=== PATIENT | female | born 1975 | race Caucasian/White ===

== ENCOUNTER 2023-01-12 20:45 | Inpatient (IN) | payer MEDICAID ==
[~2023-01-12] VITALS: Ht 167.6 cm; Wt 98.8 kg
[~2023-01-12 20:45] MED LIST: CHLO100T42 PO; LEVO100 PO; LEVO100T13 PO; QUET100T PO; QUET200T PO; TRAZ150T79 PO
[2023-01-12 23:26] LABS: GLUCOMETER DEV NAME(LOC) BV3S.; GLUCOSE,POINT OF CARE 133 MG/DL (70-110)
[2023-01-12 23:54] VITALS: BP 113/80
[2023-01-13] MEDS ORDERED: PNEUMOCOCCAL VACCINE POLYVALENT 0.5 ML VIAL [PPSV23] IM. ONE (00:45)
[2023-01-13 00:55] VITALS: BP 119/76
[2023-01-13] MEDS: LORazepam 2 MG TABLET PO PRN ×2 (01:05→16:56)
[2023-01-13] MEDS: HALOPERIDOL 5 MG TABLET PO PRN (01:05)
[2023-01-13] MEDS: ZOLPIDEM TARTRATE 10 MG TABLET PO PRN (01:05)
[2023-01-13] MEDS ORDERED: LOPERAMIDE HCL 2 MG CAPSULE PO PRN (06:30)
[2023-01-13] MEDS ORDERED: DOCUSATE SODIUM 100 MG CAPSULE PO PRN (06:30)
[2023-01-13] MEDS ORDERED: ALBUTEROL SULFATE HFA 90 MCG/PUFF 8 GM INHALER IH PRN (06:30)
[2023-01-13] MEDS ORDERED: NICOTINE 14 MG/24 HOUR PATCH TD PRN (06:30)
[2023-01-13] MEDS ORDERED: MAGNESIUM HYDROXIDE SUSPENSION 30 ML UDCUP PO PRN (06:30)
[2023-01-13] MEDS ORDERED: ONDANSETRON HCL 4 MG TABLET PO PRN (06:30)
[2023-01-13] MEDS ORDERED: PETROLATUM,WHITE 28 GM JELLY TP PRN (06:30)
[2023-01-13] MEDS ORDERED: MAG HYDROX/AL HYDROX/SIMETH ES 30 ML SUSPENSION UDCUP PO PRN (06:30)
[2023-01-13] MEDS ORDERED: CloNIDine HCL 0.1 MG TABLET PO PRN (06:30)
[2023-01-13] MEDS ORDERED: GuaiFENesin/D-METHORPHAN [SUGAR-FREE] 200-20MG/10 ML SYRUP UDCUP PO PRN (06:30)
[2023-01-13] MEDS: LEVOTHYROXINE SODIUM 100 MCG TABLET PO SCH (06:43)
[2023-01-13 08:25] VITALS: BP 122/76
[2023-01-13] MEDS ORDERED: CloZAPine 25 MG TABLET PO SCH (15:00)
[2023-01-13] MEDS: QUEtiapine FUMARATE 100 MG TABLET PO SCH (15:27)
[2023-01-13] MEDS: ACETAMINOPHEN 325 MG TABLET PO PRN (16:56)
[2023-01-13 20:00] VITALS: BP 133/83
[2023-01-13] MEDS: QUEtiapine FUMARATE 200 MG TABLET PO SCH (20:15)
[2023-01-13] MEDS: TraZODone HCL 150 MG TABLET PO SCH (20:15)
[2023-01-13] MEDS: IBUPROFEN 400 MG TABLET PO PRN (20:45)
[2023-01-14] MEDS: LEVOTHYROXINE SODIUM 100 MCG TABLET PO SCH (06:40)
[2023-01-14 07:31] LABS: BASOPHILS % (AUTO) 0.5 % (0.0-2.0); EOSINOPHILS % (AUTO) 2.8 % (1.0-6.0); HEMATOCRIT 37.7 % (36-46); HEMOGLOBIN 12.6 g/dL (12.0-16.0); LYMPHOCYTES # (AUTO) 3.5 K/uL (1.0-4.8); LYMPHOCYTES % (AUTO) 34.9 % (22.0-44.0); MEAN CORPUSCULAR HEMOGLOBIN 29.3 pg (26.0-34.0); MEAN CORPUSCULAR HGB CONC 33.4 G/dL (31.0-37.0); MEAN CORPUSCULAR VOLUME 88 fL (80-100); MONOCYTES # (AUTO) 0.9 K/uL (0.1-1.0); MONOCYTES % (AUTO) 8.7 % (2.0-9.0); NEUTROPHILS # (AUTO) 5.3 K/uL (1.8-7.7); NEUTROPHILS % (AUTO) 53.1 % (40.0-70.0); PLATELET COUNT (AUTO) 326 K/uL (150-450); RED CELL DISTRIBUTION WIDTH 14.7 % (11.5-14.5)
[2023-01-14] MEDS: QUEtiapine FUMARATE 100 MG TABLET PO SCH (08:23)
[2023-01-14 08:28] VITALS: BP 126/78
[2023-01-14] MEDS ORDERED: CloZAPine 25 MG TABLET PO SCH ×2 (09:00→21:00)
[2023-01-14] MEDS: IBUPROFEN 400 MG TABLET PO PRN (10:56)
[2023-01-14] MEDS: LORazepam 2 MG TABLET PO PRN ×2 (13:27→17:58)
[2023-01-14] MEDS: HALOPERIDOL 5 MG TABLET PO PRN ×2 (13:27→17:58)
[2023-01-14] MEDS: QUEtiapine FUMARATE 200 MG TABLET PO SCH (20:26)
[2023-01-14] MEDS: TraZODone HCL 150 MG TABLET PO SCH (20:26)
[2023-01-14 20:39] VITALS: BP 121/97
[2023-01-15] MEDS: LEVOTHYROXINE SODIUM 100 MCG TABLET PO SCH (06:46)
[2023-01-15 08:27] VITALS: BP 124/83
[2023-01-15] MEDS: QUEtiapine FUMARATE 100 MG TABLET PO SCH (08:29)
[2023-01-15] MEDS ORDERED: CloZAPine 25 MG TABLET PO SCH ×2 (09:00→21:00)
[2023-01-15] MEDS: HALOPERIDOL 5 MG TABLET PO PRN ×2 (12:11→17:04)
[2023-01-15] MEDS: LORazepam 2 MG TABLET PO PRN ×2 (12:11→17:04)
[2023-01-15] MEDS: TraZODone HCL 150 MG TABLET PO SCH (21:06)
[2023-01-15] MEDS: QUEtiapine FUMARATE 200 MG TABLET PO SCH (21:07)
[2023-01-15 23:45] VITALS: BP 142/90
[2023-01-16] MEDS: LEVOTHYROXINE SODIUM 100 MCG TABLET PO SCH (06:22)
[2023-01-16 08:23] VITALS: BP 105/66
[2023-01-16] MEDS: QUEtiapine FUMARATE 100 MG TABLET PO SCH (08:39)
[2023-01-16] MEDS: CloZAPine 25 MG TABLET PO SCH ×2 (08:39→20:02)
[2023-01-16] MEDS: LORazepam 2 MG TABLET PO PRN (12:19)
[2023-01-16] MEDS: ACETAMINOPHEN 325 MG TABLET PO PRN (13:26)
[2023-01-16] MEDS: TraZODone HCL 150 MG TABLET PO SCH (20:02)
[2023-01-16] MEDS: QUEtiapine FUMARATE 200 MG TABLET PO SCH (20:02)
[2023-01-16 20:03] VITALS: BP 142/96
[2023-01-16] MEDS: ZOLPIDEM TARTRATE 10 MG TABLET PO PRN (22:08)
[2023-01-17] MEDS: LEVOTHYROXINE SODIUM 100 MCG TABLET PO SCH (06:17)
[2023-01-17] MEDS: QUEtiapine FUMARATE 100 MG TABLET PO SCH (08:15)
[2023-01-17] MEDS: CloZAPine 25 MG TABLET PO SCH ×2 (08:15→20:04)
[2023-01-17 08:25] VITALS: BP 95/62
[2023-01-17] MEDS: HALOPERIDOL 5 MG TABLET PO PRN (16:21)
[2023-01-17] MEDS: LORazepam 2 MG TABLET PO PRN (16:21)
[2023-01-17] MEDS: ACETAMINOPHEN 325 MG TABLET PO PRN (17:34)
[2023-01-17] MEDS: QUEtiapine FUMARATE 200 MG TABLET PO SCH (20:04)
[2023-01-17] MEDS: TraZODone HCL 150 MG TABLET PO SCH (20:04)
[2023-01-17] MEDS: ZOLPIDEM TARTRATE 10 MG TABLET PO PRN (21:13)
[2023-01-17 21:30] VITALS: BP 142/82
[2023-01-18] MEDS: LEVOTHYROXINE SODIUM 100 MCG TABLET PO SCH (05:51)
[2023-01-18] MEDS: QUEtiapine FUMARATE 100 MG TABLET PO SCH (08:56)
[2023-01-18] MEDS ORDERED: CloZAPine 25 MG TABLET PO SCH (09:00)
[2023-01-18] MEDS: LORazepam 2 MG TABLET PO PRN (12:07)
[2023-01-18] MEDS: ACETAMINOPHEN 325 MG TABLET PO PRN (12:07)
[2023-01-18] MEDS ORDERED: CLOZ25TA55 PO (13:32)
[2023-01-18] MEDS ORDERED: CLOZ100T68 PO (13:32)
[2023-01-18] MEDS ORDERED: CloZAPine 100 MG TABLET PO SCH (21:00)
[2023-01-19] MEDS ORDERED: CloZAPine 25 MG TABLET PO SCH (09:00)
[2023-01-19] MEDS ORDERED: CloZAPine 100 MG TABLET PO SCH (21:00)
[2023-01-20] MEDS ORDERED: CloZAPine 25 MG TABLET PO SCH (09:00)
[2023-01-20] MEDS ORDERED: CloZAPine 100 MG TABLET PO SCH (21:00)
[2023-01-21] MEDS ORDERED: CloZAPine 100 MG TABLET PO SCH (09:00)
[2023-01-23] MEDS ORDERED: CloZAPine 25 MG TABLET PO SCH (09:00)
[2023-01-23] MEDS ORDERED: CloZAPine 100 MG TABLET PO SCH (21:00)
[2023-01-24] MEDS ORDERED: CloZAPine 25 MG TABLET PO SCH (09:00)
[2023-01-24] MEDS ORDERED: CloZAPine 100 MG TABLET PO SCH (21:00)
[2023-01-25] MEDS ORDERED: CloZAPine 100 MG TABLET PO SCH ×2 (09:00→21:00)
== END 2023-01-18 18:48 | DRG 750 ==
LOC: B3A 22:34
PROVIDERS: ADMIT Psychiatry & Neurology Psychiatry; ATTEND Psychiatry & Neurology Psychiatry
DX: F20.0 Paranoid schizophrenia (principal); E11.9 Type 2 diabetes mellitus without complications; B19.20 Unspecified viral hepatitis C without hepatic coma; E03.9 Hypothyroidism, unspecified; G47.00 Insomnia, unspecified; I10 Essential (primary) hypertension; J44.9 Chronic obstructive pulmonary disease, unspecified; K21.9 Gastro-esophageal reflux disease without esophagitis; S61.519A Laceration without foreign body of unspecified wrist, initial encounter; X78.8XXA Intentional self-harm by other sharp object, initial encounter; Y93.89 Activity, other specified; Y92.89 Other specified places as the place of occurrence of the external cause; Y99.8 Other external cause status; Z79.899 Other long term (current) drug therapy; Z91.51 Personal history of suicidal behavior; Z28.21 Immunization not carried out because of patient refusal
CPT/HCPCS: 82962; 84703; 85025; 87081; 90732

== ENCOUNTER 2023-02-04 13:53 | Inpatient (IN) | payer MEDICAID ==
[~2023-02-04] VITALS: Ht 162.6 cm; Wt 93.7 kg
[~2023-02-04 13:53] MED LIST changes: -CHLO100T42 PO; +CLOZ100T68 PO; +CLOZ25TA52 PO; -LEVO100T13 PO
[2023-02-04 16:00] VITALS: BP 124/80; PULSE 88; RESP 18; TEMP 98.4
[2023-02-04] MEDS ORDERED: PNEUMOCOCCAL VACCINE POLYVALENT 0.5 ML VIAL [PPSV23] IM. ONE (18:00)
[2023-02-04 20:06] LABS: GLUCOMETER DEV NAME(LOC) BV3S.; GLUCOSE,POINT OF CARE 125 MG/DL (70-110)
[2023-02-04] MEDS: TraZODone HCL 150 MG TABLET PO SCH (20:10)
[2023-02-04] MEDS: CloZAPine 100 MG TABLET PO SCH (20:10)
[2023-02-04] MEDS: QUEtiapine FUMARATE 200 MG TABLET PO SCH (20:10)
[2023-02-04] MEDS ORDERED: CloZAPine 100 MG TABLET PO SCH (21:00)
[2023-02-05] MEDS: LEVOTHYROXINE SODIUM 100 MCG TABLET PO SCH (06:24)
[2023-02-05 07:07] VITALS: BP 126/74; PULSE 86; RESP 18; TEMP 97.6
[2023-02-05 07:21] LABS: BASOPHILS % (AUTO) 0.6 % (0.0-2.0); EOSINOPHILS % (AUTO) 2.3 % (1.0-6.0); HEMATOCRIT 36.9 % (36-46); HEMOGLOBIN 12.7 g/dL (12.0-16.0); LYMPHOCYTES # (AUTO) 2.5 K/uL (1.0-4.8); LYMPHOCYTES % (AUTO) 37.4 % (22.0-44.0); MEAN CORPUSCULAR HEMOGLOBIN 30.3 pg (26.0-34.0); MEAN CORPUSCULAR HGB CONC 34.5 G/dL (31.0-37.0); MEAN CORPUSCULAR VOLUME 88 fL (80-100); MONOCYTES # (AUTO) 0.6 K/uL (0.1-1.0); NEUTROPHILS # (AUTO) 3.4 K/uL (1.8-7.7); NEUTROPHILS % (AUTO) 50.7 % (40.0-70.0); PLATELET COUNT (AUTO) 276 K/uL (150-450); RED BLOOD CELL COUNT(AUTO) 4.21 MIL/uL (4.00-5.20); RED CELL DISTRIBUTION WIDTH 13.9 % (11.5-14.5)
[2023-02-05 07:38] LABS: HEMOGLOBIN A1C 6.6 % (3.8-5.6)
[2023-02-05 07:46] LABS: ALANINE AMINOTRANSFERASE 24 U/L (12-78); ALBUMIN 2.9 g/dL (3.4-5.0); ALKALINE PHOSPHATASE 102 U/L (46-116); ANION GAP 8 mmol/L (8-16); ASPARTATE AMINOTRANSFERASE 17 U/L (15-37); BILIRUBIN,TOTAL 0.4 mg/dL (0.1-1.0); CALCIUM, TOTAL 9.1 mg/dL (8.8-10.5); CARBON DIOXIDE 27 mmol/L (22-29); CHLORIDE 103 mmol/L (98-107); CHOL/HDL RATIO 2.4 (3.9-5.7); CHOLESTEROL 136 mg/dL (131-200); FREE T4 (FREE THYROXINE) 1.11 ng/dL (0.76-1.46); GLOMERULAR FILTR. RATE CALC > 60 mL/min (>60); GLUCOSE,RANDOM 120 mg/dL (70-110); HCG,QUANTITATIVE < 1 mIU/mL (0-6); HDL CHOLESTEROL 57 mg/dL (40-60); LDL CHOL (CALC.) 62 mg/dL (0-130); SODIUM SERUM 138 mmol/L (136-145); THYROID STIMULATING HORMONE 0.34 uIU/mL (0.36-3.74); TOTAL PROTEIN, SERUM 6.9 g/dL (6.4-8.2); TRIGLYCERIDES 84 mg/dL (15-150)
[2023-02-05 08:09] VITALS: RESP 17
[2023-02-05] MEDS: CloZAPine 25 MG TABLET PO SCH (08:11)
[2023-02-05] MEDS: QUEtiapine FUMARATE 100 MG TABLET PO SCH (08:12)
[2023-02-05] MEDS: QUEtiapine FUMARATE 200 MG TABLET PO SCH (20:14)
[2023-02-05] MEDS: CloZAPine 100 MG TABLET PO SCH (20:14)
[2023-02-05] MEDS: TraZODone HCL 150 MG TABLET PO SCH (20:14)
[2023-02-05 20:15] VITALS: BP 132/86; PULSE 98; RESP 18; TEMP 97.6; O2SAT 97
[2023-02-05] MEDS: ZOLPIDEM TARTRATE 10 MG TABLET PO PRN (23:23)
[2023-02-06] MEDS: LEVOTHYROXINE SODIUM 100 MCG TABLET PO SCH (06:35)
[2023-02-06] MEDS: CloZAPine 25 MG TABLET PO SCH (08:12)
[2023-02-06] MEDS: QUEtiapine FUMARATE 100 MG TABLET PO SCH (08:12)
[2023-02-06 08:18] VITALS: RESP 18
[2023-02-06] MEDS ORDERED: BENZOCAINE/MENTHOL/ZINC CL 20% 11.9 GM GEL TP PRN (10:45)
[2023-02-06 18:55] VITALS: RESP 17
[2023-02-06] MEDS: IBUPROFEN 400 MG TABLET PO PRN (18:55)
[2023-02-06] MEDS: LORazepam 2 MG TABLET PO PRN (19:34)
[2023-02-06 19:55] VITALS: RESP 18
[2023-02-06] MEDS: CloZAPine 100 MG TABLET PO SCH (20:02)
[2023-02-06] MEDS: TraZODone HCL 150 MG TABLET PO SCH (20:02)
[2023-02-06] MEDS: QUEtiapine FUMARATE 200 MG TABLET PO SCH (20:02)
[2023-02-06 20:35] VITALS: BP 111/77; PULSE 99; RESP 17; TEMP 97.6; O2SAT 98
[2023-02-06] MEDS: ZOLPIDEM TARTRATE 10 MG TABLET PO PRN (21:18)
[2023-02-07] MEDS: IBUPROFEN 400 MG TABLET PO PRN (02:52)
[2023-02-07 03:03] VITALS: BP 106/81; PULSE 100; RESP 18; TEMP 97.9; O2SAT 97
[2023-02-07] MEDS: LEVOTHYROXINE SODIUM 100 MCG TABLET PO SCH (05:34)
[2023-02-07] MEDS: QUEtiapine FUMARATE 100 MG TABLET PO SCH (07:55)
[2023-02-07] MEDS: LORazepam 2 MG TABLET PO PRN ×3 (07:56→20:17)
[2023-02-07] MEDS: CloZAPine 25 MG TABLET PO SCH (07:58)
[2023-02-07 08:31] VITALS: BP 126/76; PULSE 84; RESP 16; TEMP 97.9; O2SAT 96
[2023-02-07] MEDS: HALOPERIDOL 5 MG TABLET PO PRN (13:04)
[2023-02-07] MEDS ORDERED: DiphenhydrAMINE HCL 50 MG/ML VIAL ONE (14:36)
[2023-02-07] MEDS ORDERED: HALOPERIDOL LACTATE 5 MG/ML VIAL ONE (14:36)
[2023-02-07] MEDS ORDERED: LORazepam 2 MG/ML VIAL ONE (14:36)
[2023-02-07] MEDS ORDERED: DiphenhydrAMINE HCL 50 MG/ML VIAL IM ONE (14:45)
[2023-02-07] MEDS ORDERED: LORazepam 2 MG/ML VIAL IM ONE (14:45)
[2023-02-07] MEDS ORDERED: HALOPERIDOL LACTATE 5 MG/ML VIAL IM ONE (14:45)
[2023-02-07] MEDS: CloZAPine 100 MG TABLET PO SCH (20:17)
[2023-02-07] MEDS: ZOLPIDEM TARTRATE 10 MG TABLET PO PRN (20:17)
[2023-02-07] MEDS: TraZODone HCL 150 MG TABLET PO SCH (20:17)
[2023-02-07] MEDS: QUEtiapine FUMARATE 200 MG TABLET PO SCH (20:17)
[2023-02-07 22:38] VITALS: BP 129/72; PULSE 80; RESP 18; TEMP 98; O2SAT 98
[2023-02-08] MEDS: LEVOTHYROXINE SODIUM 100 MCG TABLET PO SCH (06:08)
[2023-02-08] MEDS: HALOPERIDOL 5 MG TABLET PO PRN (08:24)
[2023-02-08] MEDS: QUEtiapine FUMARATE 100 MG TABLET PO SCH (08:24)
[2023-02-08] MEDS: CloZAPine 25 MG TABLET PO SCH (08:24)
[2023-02-08] MEDS: LORazepam 2 MG TABLET PO PRN (08:24)
[2023-02-08 08:32] VITALS: BP 122/79; PULSE 84; RESP 18; TEMP 98.9; O2SAT 98
[2023-02-08 13:57] VITALS: RESP 18
[2023-02-08] MEDS: IBUPROFEN 400 MG TABLET PO PRN ×2 (13:57→23:22)
[2023-02-08 14:47] VITALS: RESP 18
[2023-02-08] MEDS: CloZAPine 100 MG TABLET PO SCH (19:59)
[2023-02-08] MEDS: TraZODone HCL 150 MG TABLET PO SCH (19:59)
[2023-02-08] MEDS: QUEtiapine FUMARATE 200 MG TABLET PO SCH (19:59)
[2023-02-08] MEDS: ZOLPIDEM TARTRATE 10 MG TABLET PO PRN (20:02)
[2023-02-08 20:31] VITALS: BP 144/83; PULSE 100; TEMP 98.2
[2023-02-08 23:16] VITALS: BP 101/70; PULSE 97; RESP 19; TEMP 98.1; O2SAT 99
[2023-02-09] MEDS: LEVOTHYROXINE SODIUM 100 MCG TABLET PO SCH (05:58)
[2023-02-09] MEDS: CloZAPine 25 MG TABLET PO SCH (08:11)
[2023-02-09] MEDS: QUEtiapine FUMARATE 100 MG TABLET PO SCH (08:11)
[2023-02-09 08:21] VITALS: BP 119/78; PULSE 97; RESP 17; TEMP 98.1; O2SAT 96
[2023-02-09] MEDS: CloZAPine 100 MG TABLET PO SCH (20:01)
[2023-02-09] MEDS: QUEtiapine FUMARATE 200 MG TABLET PO SCH (20:01)
[2023-02-09] MEDS: TraZODone HCL 150 MG TABLET PO SCH (20:01)
[2023-02-09 20:03] VITALS: BP 140/84; PULSE 97; RESP 19; TEMP 97.8
[2023-02-09] MEDS: ZOLPIDEM TARTRATE 10 MG TABLET PO PRN (20:06)
[2023-02-09] MEDS: LORazepam 2 MG TABLET PO PRN (21:42)
[2023-02-10] MEDS: LEVOTHYROXINE SODIUM 100 MCG TABLET PO SCH (05:49)
[2023-02-10] MEDS: QUEtiapine FUMARATE 100 MG TABLET PO SCH (08:07)
[2023-02-10] MEDS: CloZAPine 100 MG TABLET PO SCH ×2 (08:08→20:22)
[2023-02-10] MEDS: DIVALPROEX SODIUM 500 MG DR TABLET PO SCH ×2 (08:10→20:22)
[2023-02-10 08:14] VITALS: BP 107/69; PULSE 78; RESP 17; TEMP 97.3; O2SAT 95
[2023-02-10] MEDS: LORazepam 2 MG TABLET PO PRN ×2 (15:54→22:18)
[2023-02-10] MEDS: ACETAMINOPHEN 325 MG TABLET PO PRN (15:54)
[2023-02-10 20:08] VITALS: BP 123/80; PULSE 97; RESP 18; TEMP 97.8; O2SAT 98
[2023-02-10] MEDS: TraZODone HCL 150 MG TABLET PO SCH (20:22)
[2023-02-10] MEDS: ZOLPIDEM TARTRATE 10 MG TABLET PO PRN (20:22)
[2023-02-10] MEDS: QUEtiapine FUMARATE 200 MG TABLET PO SCH (20:22)
[2023-02-11] MEDS: LEVOTHYROXINE SODIUM 100 MCG TABLET PO SCH (06:20)
[2023-02-11 08:09] VITALS: BP 120/84; PULSE 82; RESP 16; TEMP 97.6; O2SAT 98
[2023-02-11] MEDS: DIVALPROEX SODIUM 500 MG DR TABLET PO SCH ×2 (08:16→20:19)
[2023-02-11] MEDS: CloZAPine 100 MG TABLET PO SCH ×2 (08:16→20:19)
[2023-02-11] MEDS: QUEtiapine FUMARATE 100 MG TABLET PO SCH (08:16)
[2023-02-11] MEDS: HALOPERIDOL 5 MG TABLET PO PRN (11:06)
[2023-02-11] MEDS: LORazepam 2 MG TABLET PO PRN ×2 (11:06→15:34)
[2023-02-11 20:10] VITALS: BP 110/67; PULSE 95; RESP 18; TEMP 98.4; O2SAT 100
[2023-02-11] MEDS: TraZODone HCL 150 MG TABLET PO SCH (20:19)
[2023-02-11] MEDS: QUEtiapine FUMARATE 200 MG TABLET PO SCH (20:19)
[2023-02-12 05:30] VITALS: RESP 18
[2023-02-12] MEDS: ACETAMINOPHEN 325 MG TABLET PO PRN ×2 (05:32→17:02)
[2023-02-12] MEDS: LEVOTHYROXINE SODIUM 100 MCG TABLET PO SCH (05:32)
[2023-02-12 06:32] VITALS: RESP 18
[2023-02-12 07:20] LABS: BASOPHILS % (AUTO) 0.4 % (0.0-2.0); EOSINOPHILS % (AUTO) 2.9 % (1.0-6.0); HEMATOCRIT 37.1 % (36-46); HEMOGLOBIN 12.3 g/dL (12.0-16.0); LYMPHOCYTES # (AUTO) 2.7 K/uL (1.0-4.8); LYMPHOCYTES % (AUTO) 34.3 % (22.0-44.0); MEAN CORPUSCULAR HEMOGLOBIN 29.4 pg (26.0-34.0); MEAN CORPUSCULAR HGB CONC 33.2 G/dL (31.0-37.0); MEAN CORPUSCULAR VOLUME 89 fL (80-100); MONOCYTES # (AUTO) 0.7 K/uL (0.1-1.0); NEUTROPHILS # (AUTO) 4.1 K/uL (1.8-7.7); NEUTROPHILS % (AUTO) 53.4 % (40.0-70.0); PLATELET COUNT (AUTO) 314 K/uL (150-450); RED BLOOD CELL COUNT(AUTO) 4.19 MIL/uL (4.00-5.20)
[2023-02-12] MEDS: CloZAPine 100 MG TABLET PO SCH ×2 (08:38→20:04)
[2023-02-12] MEDS: QUEtiapine FUMARATE 100 MG TABLET PO SCH (08:38)
[2023-02-12] MEDS: DIVALPROEX SODIUM 500 MG DR TABLET PO SCH ×2 (08:38→20:04)
[2023-02-12 08:41] VITALS: BP 126/89; PULSE 84; RESP 18; TEMP 98.9; O2SAT 98
[2023-02-12] MEDS: LORazepam 2 MG TABLET PO PRN (08:42)
[2023-02-12 17:02] VITALS: RESP 17
[2023-02-12 18:02] VITALS: RESP 18
[2023-02-12] MEDS: TraZODone HCL 150 MG TABLET PO SCH (20:04)
[2023-02-12] MEDS: QUEtiapine FUMARATE 200 MG TABLET PO SCH (20:04)
[2023-02-12 23:22] VITALS: BP 114/72; PULSE 80; RESP 17; TEMP 97.6
[2023-02-13] MEDS: LEVOTHYROXINE SODIUM 100 MCG TABLET PO SCH (06:04)
[2023-02-13 08:46] VITALS: BP 118/79; PULSE 79; RESP 18; TEMP 98; O2SAT 97
[2023-02-13] MEDS: DIVALPROEX SODIUM 500 MG DR TABLET PO SCH ×2 (09:26→20:18)
[2023-02-13] MEDS: CloZAPine 100 MG TABLET PO SCH ×2 (09:26→20:19)
[2023-02-13] MEDS: QUEtiapine FUMARATE 100 MG TABLET PO SCH (09:26)
[2023-02-13] MEDS: LORazepam 2 MG TABLET PO PRN (13:07)
[2023-02-13 14:20] VITALS: RESP 18
[2023-02-13] MEDS: ACETAMINOPHEN 325 MG TABLET PO PRN (14:20)
[2023-02-13 15:20] VITALS: RESP 18
[2023-02-13 20:18] VITALS: BP 110/65; PULSE 95; RESP 19; TEMP 97.5; O2SAT 97
[2023-02-13] MEDS: TraZODone HCL 150 MG TABLET PO SCH (20:18)
[2023-02-13] MEDS: QUEtiapine FUMARATE 200 MG TABLET PO SCH (20:18)
[2023-02-13] MEDS: ZOLPIDEM TARTRATE 10 MG TABLET PO PRN (21:16)
[2023-02-14] MEDS: LEVOTHYROXINE SODIUM 100 MCG TABLET PO SCH (05:37)
[2023-02-14] MEDS: CloZAPine 100 MG TABLET PO SCH ×2 (08:11→20:05)
[2023-02-14] MEDS: QUEtiapine FUMARATE 100 MG TABLET PO SCH (08:11)
[2023-02-14] MEDS: DIVALPROEX SODIUM 500 MG DR TABLET PO SCH ×2 (08:11→20:04)
[2023-02-14 08:42] VITALS: BP 101/68; PULSE 99; RESP 18; TEMP 98.3; O2SAT 98
[2023-02-14] MEDS: LORazepam 2 MG TABLET PO PRN (16:44)
[2023-02-14] MEDS: TraZODone HCL 150 MG TABLET PO SCH (20:05)
[2023-02-14] MEDS: QUEtiapine FUMARATE 200 MG TABLET PO SCH (20:05)
[2023-02-14 20:21] VITALS: BP 117/70; PULSE 101; RESP 18; TEMP 97.6; O2SAT 98
[2023-02-14] MEDS: ACETAMINOPHEN 325 MG TABLET PO PRN (22:15)
[2023-02-15] MEDS: ZOLPIDEM TARTRATE 10 MG TABLET PO PRN (00:17)
[2023-02-15] MEDS: LEVOTHYROXINE SODIUM 100 MCG TABLET PO SCH (06:11)
[2023-02-15 08:22] VITALS: BP 117/74; PULSE 93; RESP 17; TEMP 98; O2SAT 95
[2023-02-15] MEDS: DIVALPROEX SODIUM 500 MG DR TABLET PO SCH ×2 (08:33→20:26)
[2023-02-15] MEDS: QUEtiapine FUMARATE 100 MG TABLET PO SCH (08:33)
[2023-02-15] MEDS: CloZAPine 100 MG TABLET PO SCH ×2 (08:33→20:26)
[2023-02-15] MEDS: ACETAMINOPHEN 325 MG TABLET PO PRN (16:33)
[2023-02-15 20:10] VITALS: BP 119/81; PULSE 96; RESP 20; TEMP 97.6; O2SAT 96
[2023-02-15] MEDS: TraZODone HCL 150 MG TABLET PO SCH (20:27)
[2023-02-15] MEDS: QUEtiapine FUMARATE 200 MG TABLET PO SCH (20:27)
[2023-02-16 01:44] VITALS: RESP 18
[2023-02-16] MEDS: ACETAMINOPHEN 325 MG TABLET PO PRN (01:45)
[2023-02-16] MEDS: LEVOTHYROXINE SODIUM 100 MCG TABLET PO SCH (06:18)
[2023-02-16 08:10] VITALS: BP 113/62; PULSE 100; RESP 18; TEMP 98; O2SAT 99
[2023-02-16] MEDS: QUEtiapine FUMARATE 100 MG TABLET PO SCH (08:13)
[2023-02-16] MEDS: CloZAPine 100 MG TABLET PO SCH (08:13)
[2023-02-16] MEDS: DIVALPROEX SODIUM 500 MG DR TABLET PO SCH (08:15)
[2023-02-16] MEDS ORDERED: DIVA-112 PO (10:08)
[2023-02-16] MEDS ORDERED: CLOZ100T61 PO (10:09)
== END 2023-02-16 12:05 | DRG 750 ==
LOC: B3A 16:21
PROVIDERS: ADMIT Psychiatry & Neurology Psychiatry; ATTEND Psychiatry & Neurology Psychiatry
DX: F20.0 Paranoid schizophrenia (principal); E11.9 Type 2 diabetes mellitus without complications; B19.20 Unspecified viral hepatitis C without hepatic coma; E03.9 Hypothyroidism, unspecified; E78.5 Hyperlipidemia, unspecified; I10 Essential (primary) hypertension; J44.9 Chronic obstructive pulmonary disease, unspecified; K21.9 Gastro-esophageal reflux disease without esophagitis; Z79.899 Other long term (current) drug therapy
CPT/HCPCS: 80053; 80061; 82962; 83036; 84439; 84443; 84702; 85025; J1200; J1630; J2060

== ENCOUNTER 2024-10-27 18:55 | Inpatient (IN) | payer MEDICAID ==
[~2024-10-27] VITALS: Ht 165.1 cm; Wt 99.8 kg
[~2024-10-27 18:55] MED LIST changes: +CLOZ100T61 PO; -CLOZ100T68 PO; -CLOZ25TA52 PO; +DIVA-112 PO
[2024-10-27 19:17] LABS: BASOPHILS % (AUTO) 0.5 % (0.0-2.0); EOSINOPHILS % (AUTO) 0.9 % (1.0-6.0); HEMATOCRIT 33.3 % (36-46); HEMOGLOBIN 11.3 g/dL (12.0-16.0); LYMPHOCYTES # (AUTO) 2.2 K/uL (1.0-4.8); LYMPHOCYTES % (AUTO) 29.1 % (22.0-44.0); MEAN CORPUSCULAR HEMOGLOBIN 30.4 pg (26.0-34.0); MEAN CORPUSCULAR VOLUME 89 fL (80-100); MONOCYTES # (AUTO) 0.7 K/uL (0.1-1.0); MONOCYTES % (AUTO) 8.8 % (2.0-9.0); NEUTROPHILS # (AUTO) 4.6 K/uL (1.8-7.7); NEUTROPHILS % (AUTO) 60.7 % (40.0-70.0); PLATELET COUNT (AUTO) 265 K/uL (150-450); RED BLOOD CELL COUNT(AUTO) 3.73 MIL/uL (4.00-5.20); RED CELL DISTRIBUTION WIDTH 14.4 % (11.5-14.5); WHITE BLOOD COUNT (AUTO) 7.6 K/uL (4.5-11.0)
[2024-10-27 19:24] LABS: ANION GAP 7 mmol/L (8-16); CALCIUM, TOTAL 8.7 mg/dL (8.8-10.5); CARBON DIOXIDE 31 mmol/L (22-29); CHLORIDE 97 mmol/L (98-107); CREATININE 0.95 mg/dL (0.60-1.30); GLOMERULAR FILTR. RATE CALC > 60 mL/min (>60); GLUCOSE,RANDOM 137 mg/dL (70-110); POTASSIUM 4.3 mmol/L (3.5-5.1); SODIUM SERUM 135 mmol/L (136-145); UREA NITROGEN, BLOOD 10 mg/dL (7-18)
[2024-10-27 19:32] LABS: ALCOHOL, BLOOD (SERUM) < 3 mg/dL (0-10)
[2024-10-27] MEDS: PERTUSS(ACELL),DIPH,TET/PF 0.5 ML SYRINGE [ADULT] IM. ONE (20:45)
[2024-10-27] MEDS: BACITRACIN 0.9 GM PACKET OINTMENT TP ONE (20:45)
[2024-10-27 21:45] LABS: PH,URINE DRUG SCREEN 6.5 (5.0-8.0)
[2024-10-27 21:53] LABS: ALCOHOL, URINE DRUG SCREEN NEGATIVE (NEGATIVE); AMPHET/METH SCREEN,URINE NEGATIVE (NEGATIVE); BARBITURATE SCREEN, URINE NEGATIVE (NEGATIVE); BENZODIAZEPINES SCREEN,URINE NEGATIVE (NEGATIVE); CANNABINOID SCREEN,URINE NEGATIVE (NEGATIVE); COCAINE SCREEN,URINE NEGATIVE (NEGATIVE); METHADONE SCREEN, URINE NEGATIVE (NEGATIVE); OPIATE SCREEN,URINE NEGATIVE (NEGATIVE); PHENCYCLIDINE SCREEN,URINE NEGATIVE (NEGATIVE)
[2024-10-27] MEDS: HALOPERIDOL 5 MG TABLET PO ONE (23:36)
[2024-10-27] MEDS: LORazepam 1 MG TABLET PO ONE (23:36)
[2024-10-27] MEDS: QUEtiapine FUMARATE 100 MG TABLET PO ONE (23:36)
[2024-10-27] MEDS: TraZODone HCL 50 MG TABLET PO ONE (23:36)
[2024-10-28 00:51] LABS: COVID AG,FIA SOURCE NASAL SWAB
[2024-10-28 01:07] LABS: SARS-COV2 (COVID) ANTIGEN,FIA Negative (Negative)
[2024-10-28 02:42] LABS: APPEARANCE,URINE CLEAR (CLEAR); BILIRUBIN,URINE NEGATIVE (NEGATIVE); COLOR,URINE COLORLESS (YELLOW); GLUCOSE, URINE (UA) NEGATIVE (NEGATIVE); KETONES,URINE NEGATIVE (NEGATIVE); LEUKOCYTE ESTERASE ,URINE NEGATIVE (NEGATIVE); NITRATE,URINE NEGATIVE (NEGATIVE); OCCULT BLOOD,URINE NEGATIVE (NEGATIVE); PH,URINE 6.5 (5.0-8.0); PROTEIN,URINE NEGATIVE (NEGATIVE); SPECIFIC GRAVITIY, URINE 1.011 (1.003-1.030); UROBILINOGEN,URINE <=1.0 mg/dL (<=1.0)
[2024-10-28] MEDS: QUEtiapine FUMARATE 100 MG TABLET PO ONE ×2 (09:20→20:30)
[2024-10-28] MEDS: DIVALPROEX SODIUM 500 MG ER TABLET PO ONE (09:20)
[2024-10-28 11:54] VITALS: O2SAT 97
[2024-10-28 14:17] VITALS: BP 128/70; PULSE 107; RESP 19; TEMP 97.3; O2SAT 97
[2024-10-28] MEDS ORDERED: DOCUSATE SODIUM 100 MG CAPSULE PO PRN (19:15)
[2024-10-28] MEDS ORDERED: NICOTINE 14 MG/24 HOUR PATCH TD PRN (19:15)
[2024-10-28] MEDS ORDERED: PETROLATUM,WHITE 28 GM JELLY TP PRN (19:15)
[2024-10-28] MEDS ORDERED: ALBUTEROL SULFATE HFA 90 MCG/PUFF 8 GM INHALER IH PRN (19:15)
[2024-10-28] MEDS ORDERED: CloNIDine HCL 0.1 MG TABLET PO PRN (19:15)
[2024-10-28] MEDS ORDERED: MAGNESIUM HYDROXIDE SUSPENSION 30 ML UDCUP PO PRN (19:15)
[2024-10-28] MEDS ORDERED: LOPERAMIDE HCL 2 MG CAPSULE PO PRN (19:15)
[2024-10-28] MEDS ORDERED: MAG HYDROX/ALUMINUM HYD/SIMETH ES 30 ML SUSPENSION UDCUP PO PRN (19:15)
[2024-10-28] MEDS ORDERED: GuaiFENesin/D-METHORPHAN [SUGAR-FREE] 200-20MG/10 ML SYRUP UDCUP PO PRN (19:15)
[2024-10-28] MEDS ORDERED: ONDANSETRON 4 MG TABLET PO PRN (19:15)
[2024-10-28 21:11] VITALS: BP 109/65; PULSE 126; RESP 20; TEMP 98; O2SAT 96
[2024-10-29] MEDS: LEVOTHYROXINE SODIUM 100 MCG TABLET PO SCH (06:37)
[2024-10-29 09:09] VITALS: BP 113/68; PULSE 88; RESP 18; TEMP 97.3; O2SAT 97
[2024-10-29 09:48] LABS: CHOL/HDL RATIO 2.2 (3.9-5.7); THYROID STIMULATING HORMONE 1.59 uIU/mL (0.36-3.74)
[2024-10-29 09:54] LABS: HEMOGLOBIN A1C 6.1 % (3.8-5.6)
[2024-10-29 15:30] VITALS: RESP 18
[2024-10-29] MEDS: IBUPROFEN 400 MG TABLET PO PRN (15:30)
[2024-10-29] MEDS: CloZAPine 100 MG TABLET PO SCH (16:12)
[2024-10-29 16:30] VITALS: RESP 18
[2024-10-29] MEDS: DIVALPROEX SODIUM 500 MG DR TABLET PO SCH (20:18)
[2024-10-29] MEDS: QUEtiapine FUMARATE 200 MG TABLET PO SCH (20:18)
[2024-10-29 20:23] VITALS: BP 128/75; PULSE 88; RESP 16; TEMP 97.9; O2SAT 98
[2024-10-29] MEDS ORDERED: CloZAPine 100 MG TABLET PO SCH (21:00)
[2024-10-30 08:30] VITALS: BP 101/60; PULSE 93; RESP 17; TEMP 97.5
[2024-10-30 08:45] LABS: BASOPHILS % (AUTO) 0.8 % (0.0-2.0); EOSINOPHILS % (AUTO) 2.3 % (1.0-6.0); HEMATOCRIT 38.7 % (36-46); HEMOGLOBIN 13.4 g/dL (12.0-16.0); LYMPHOCYTES # (AUTO) 2.8 K/uL (1.0-4.8); LYMPHOCYTES % (AUTO) 41.1 % (22.0-44.0); MEAN CORPUSCULAR HEMOGLOBIN 30.9 pg (26.0-34.0); MEAN CORPUSCULAR HGB CONC 34.6 G/dL (31.0-37.0); MEAN CORPUSCULAR VOLUME 89 fL (80-100); MONOCYTES # (AUTO) 0.9 K/uL (0.1-1.0); MONOCYTES % (AUTO) 12.7 % (2.0-9.0); NEUTROPHILS # (AUTO) 2.9 K/uL (1.8-7.7); NEUTROPHILS % (AUTO) 43.1 % (40.0-70.0); PLATELET COUNT (AUTO) 310 K/uL (150-450); RED BLOOD CELL COUNT(AUTO) 4.34 MIL/uL (4.00-5.20); RED CELL DISTRIBUTION WIDTH 14.6 % (11.5-14.5); WHITE BLOOD COUNT (AUTO) 6.7 K/uL (4.5-11.0)
[2024-10-30] MEDS: QUEtiapine FUMARATE 100 MG TABLET PO SCH (09:57)
[2024-10-30 14:57] VITALS: RESP 18; O2SAT 96
[2024-10-30] MEDS: ACETAMINOPHEN 325 MG TABLET PO PRN (14:57)
[2024-10-30 15:47] VITALS: RESP 17
[2024-10-30] MEDS: LORazepam 2 MG TABLET PO PRN (16:50)
[2024-10-30 21:10] VITALS: BP 104/56; PULSE 98; RESP 17; TEMP 97.3; O2SAT 93
[2024-10-31 08:30] VITALS: RESP 16
[2024-10-31 16:05] VITALS: RESP 16
[2024-10-31 17:05] VITALS: RESP 16
[2024-10-31] MEDS: HALOPERIDOL 5 MG TABLET PO PRN (18:14)
[2024-10-31] MEDS: ZOLPIDEM TARTRATE 10 MG TABLET PO PRN (20:08)
[2024-10-31 20:29] VITALS: BP 115/66; PULSE 96; RESP 18; TEMP 98.2
[2024-11-01 09:29] LABS: APPEARANCE,URINE CLEAR (CLEAR); BILIRUBIN,URINE NEGATIVE (NEGATIVE); COLOR,URINE YELLOW (YELLOW); GLUCOSE, URINE (UA) NEGATIVE (NEGATIVE); LEUKOCYTE ESTERASE ,URINE NEGATIVE (NEGATIVE); NITRATE,URINE NEGATIVE (NEGATIVE); OCCULT BLOOD,URINE NEGATIVE (NEGATIVE); PROTEIN,URINE 30-70 mg/dL (NEGATIVE); SPECIFIC GRAVITIY, URINE 1.031 (1.003-1.030); UROBILINOGEN,URINE <=1.0 mg/dL (<=1.0)
[2024-11-01 09:41] LABS: ALCOHOL, URINE DRUG SCREEN NEGATIVE (NEGATIVE); AMPHET/METH SCREEN,URINE NEGATIVE (NEGATIVE); BARBITURATE SCREEN, URINE NEGATIVE (NEGATIVE); BENZODIAZEPINES SCREEN,URINE NEGATIVE (NEGATIVE); CANNABINOID SCREEN,URINE NEGATIVE (NEGATIVE); COCAINE SCREEN,URINE NEGATIVE (NEGATIVE); METHADONE SCREEN, URINE NEGATIVE (NEGATIVE); OPIATE SCREEN,URINE NEGATIVE (NEGATIVE); PHENCYCLIDINE SCREEN,URINE NEGATIVE (NEGATIVE)
[2024-11-01 13:28] VITALS: BP 124/89; PULSE 100; RESP 16; TEMP 98.1
== END 2024-11-01 15:55 | DRG 750 ==
LOC: EMS 18:56 → UNDOADMIN 10-28 00:33 → EDH 10-28 00:33 → B2S 10-28 10:47
PROVIDERS: ADMIT Psychiatry & Neurology Child & Adolescent Psychiatry; ATTEND Psychiatry & Neurology Child & Adolescent Psychiatry
PROC: GZ56ZZZ Individual Psychotherapy, Supportive (ICD-10-PCS; principal; 2024-10-29)
DX: F20.0 Paranoid schizophrenia (principal); R45.851 Suicidal ideations; S61.512A Laceration without foreign body of left wrist, initial encounter; E03.9 Hypothyroidism, unspecified; D64.9 Anemia, unspecified; Z20.822 Contact with and (suspected) exposure to COVID-19; F32.A Depression, unspecified; M79.7 Fibromyalgia; F19.10 Other psychoactive substance abuse, uncomplicated; G47.00 Insomnia, unspecified; I10 Essential (primary) hypertension; Z79.899 Other long term (current) drug therapy; Z87.891 Personal history of nicotine dependence; X58.XXXA Exposure to other specified factors, initial encounter; Y93.89 Activity, other specified; Y92.89 Other specified places as the place of occurrence of the external cause; Y99.8 Other external cause status
CPT/HCPCS: 80048; 80061; 80164; 80307; 81003; 83036; 84443; 84703; 85025; 87081; 90715; G0480